=== PATIENT | female | born 1975 | race Caucasian/White ===

== ENCOUNTER 2018-02-08 06:00 | Day surgery (SDC) | payer OTHER ==
[~2018-02-08 06:00] MED LIST: VITAMIN D1000 UNI1 PO
[2018-02-08] MEDS ORDERED: POLY119PG PO (13:12)
[2018-02-08] MEDS ORDERED: ULTRACET PO (13:12)
== END 2018-02-08 16:45 | disposition home or self-care (01) ==
LOC: CIR.AMB 06:00
DX: K80.10 Calculus of gallbladder with chronic cholecystitis without obstruction (principal)